=== PATIENT | male | born 1960 | race Caucasian/White ===

== ENCOUNTER 2023-07-21 08:37 | Outpatient (AMB) | payer OTHER, SELFPAY ==
--- NOTE | 2023-07-21 08:43 | A.OFFVIS_ITS ---
Intake Vital Signs 07/21/23 08:44 Height 6 ft 1 in Weight 129 lb BMI 17.0 BP 112/84 Blood Pressure Location Rt brachial Position Sitting Pulse 106 H Pulse Source Pulse Oximeter Pulse Oximetry (%) 94 Oxygen Delivery Method Room Air Intake Visit Reasons: ENP-Essential Tremors - Confirmed Intake Note: Patient presents for essential tremors. I'm having balance issue,weakness and a lot of tremors in my hands, this has been going on for a while Allergies No Known Allergies Allergy (Verified 07/21/23 08:45) Medication List - Last Reconciled 07/23/23 by CHARLOTTE De La Paz cyclobenzaprine 10 mg PO TID flash glucose sensor (FreeStyle Juan M 2 Sensor kit) As directed folic acid 1 mg PO DAILY hdgsno-qyqvaqye-hreybif 12,000-38,000 -60,000 unit (Creon) 3 caps PO TID omeprazole 20 mg PO DAILY oxycodone 10 mg PO QID PRN propranolol 10 mg PO BID tamsulosin 0.4 mg PO DAILY vitamin B complex (Vitamins B Complex tablet) 1 tab PO DAILY HPI HPI Comments History of Present Illness Details 62-yr-old male presents for new pt evalu ation of movement disorder, specifically: tremor and balance difficulties. Pt states he started having BUE tremor, R > L, in 2014 after he had a cervical stenosis surgical repair which done done in hopes this would help his balance problems. However, he also states that his gait has been poor since that surgery. The tremor is action and rest. He did first notice it with action- was having difficulty holding his tools. Pt states the tremor makes it difficult to do anything, such as eating, pouring and holding things, writing. Pt is right handed. He lives in a house w/ his . Does not have children. ADL status: He does need help w/ shaving, showering- can be unsteady getting in/out of shower- has a SCREEN MAKING TECHNICIAN through [facility]. IADL status: States he is Ind. Does drive- denies nay near accidents/accidents. Fine-motor skills: Cannot write. Does his zippers with left hand. Pt reports: Micrographia: poor writing Hypophonia: Denies Hyposmia: Denies Dysphagia: Can have difficulty swallowing solid foods- is missing several teeth, cannot eat w/ his partials Drooling: Sometimes, mild nocturnal Orthostatic lightheadedness: Often lightheaded- but not often often - ie not daily Constipation: Rarely Slowness: He is slower overall Freezing episodes: It may happen Sensory changes: Tingling in his toes- was recently dx'd w/ DM. Tremor: as above Stiffness/cramps: His back is stiff. BLE muscle cramps. Weakness: He feels overall weaker since the 2015 surgery. 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 He does have a cane but does not work for him. He does use his walker at home. He is prone to fall, especially when going to the bathroom at night or getting in/out of the shower (likes a hot shower), when he gets up from the tub and less so getting out of the shower- has a moment of fogginess and can lose his balance. Tries to keep the lights on at night to help his balance. Sleep difficulty: Sleeps well. Denies parasomnias. Memory impairment: States memory is fine. Likes to read, uses his computer at t imes- can use a mouse but not a trackpad w/ the tremor. Hallucinations: Denies Usual exercise: Uses a mechanical stepper at home- states not as often as he should. Also endorses: Dizziness- orthostatic- feels like a brief swaying shock wave . Shooting neck and back pain- exacerbated by movement, when the pain grabs his neck it causes stiffness and he cannot talk. Right 1st-3rd finger numbness/tingling. Denies: Urinary incontinence, bowel incontinence. He did try Propranolol 10mg bid- was ineffective after several weeks, unsure if it exacerbated his lightheadedness. He takes Oxycodone 10mg qid and prn- for chronic pain- managed by PCP. History of concussion/head injury? 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 History of neuroleptic (metoclopramide/antipsychotics) use? Denies History of alcohol use or substances? States he does drink daily- maybe 2-3 shots of whiskey in day. Smokes cigarrettes- varies- 1/2-1PPD, maybe more or less. History of psychiatric hospitalizations? Denies History of occupational chemical exposures? 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 Family history of movement disorders? None Family history of mood disorder or suicide? None CT Cervical Spine W/O Contrast COMPARISON: 07/29/2018 FINDINGS: BRAIN and EXTRA-AXIAL SPACES: No parenchymal hemorrhage, midline shift or mass effect. Díaz-white matter differentiation is well preserved. No acute infarct. Negative insular ribbon and hyperdense vessel signs. Ventricles, sulci and basilar cisterns are normal for age. Mild low-density white matter changes. No subarachnoid hemorrhage, subdural or epidural collections. CALVARIUM, SKULL BASE AND SOFT TISSUES: No fractures. Erosive cystic change involves the left maxillary alveolus (image 65 series 301), presumably site of prior odontogenic abnormality. Mild mucosal thickening of the left sphenoid sinus. Otherwise, the paranasal sinuses and mastoid air cells are clear. Visualized orbits and globes are intact. An acute soft tissue injury is not appreciated. CERVICAL SPINE: No fracture. No acute osseous abnormalities. Mild straightening of the cervical spine which may be due to patient positioning or muscle spasms. No locked or perched facet. Multilevel degenerative changes most prominent at C5-C7. Postsurgical changes of the C5-C7 right posterior elements and spinous processes with fixation hardware. OTHER BONES: No acute abnormality. CERVICAL SOFT TISSUES AND LUNG APICES: Clear lung apices with mild emphysematous changes. Normal thyroid gland. \ IMPRESSION: No acute intracranial or cervical spine abnormality. 08/23/2021, MRI Brain W/O Contrast COMPARISON: Noncontrast CT of 03/21/2021. FINDINGS: BRAIN and EXTRA-AXIAL SPACES: The midline structures, including sella, corpus callosum, and craniocervical junction, are unremarkable. There is no mass effect, midline shift, or effacement of the basal cisterns. On diffusion weighted imaging, there are no regions of restricted diffusion to indicate an acute or subacute infarct. There is no evidence of intracranial hemorrhage on susceptibility sensitive sequence. Mild scattered foci of T2 prolongation are seen in the white matter. A chronic small linear lacunar infarct in the inferior left cerebellum is also noted. Ventricles, cisterns, and sulci are normal in size and configuration, without hydrocephalus. No abnormal extra-axial fluid collections are seen. Meningeal surfaces are normal. Major intracranial flow voids are present. EXTRACRANIAL SOFT TISSUES: Orbits are unremarkable. There is minimal fluid in the left sphenoid sinus. Paranasal sinuses and mastoids are otherwise unremarkable. BONES: Marrow signal is preserved. IMPRESSION: No acute/subacute infarct, hemorrhage, or hydrocephalus. Mild nonspecific white matter T2 hyperintensities probably sequela of chronic microangiopathy. 03/21/21, CT Cervical Spine W/O Contrast COMPARISON: 07/29/2018 FINDINGS: BRAIN and EXTRA-AXIAL SPACES: No parenchymal hemorrhage, midline shift or mass effect. Díaz-white matter differentiation is well preserved. No acute infarct. Negative insular ribbon and hyperdense vessel signs. Ventricles, sulci and basilar cisterns are normal for age. Mild low-density white matter changes. No subarachnoid hemorrhage, subdural or epidural collections. CALVARIUM, SKULL BASE AND SOFT TISSUES: No fractures. Erosive cystic change involves the left maxillary alveolus (image 65 series 301), presumably site of prior odontogenic abnormality. Mild mucosal thickening of the left sphenoid sinus. Otherwise, the paranasal sinuses and mastoid air cells are clear. Visualized orbits and globes are intact. An acute soft tissue injury is not appreciated. CERVICAL SPINE: No fracture. No acute osseous abnormalities. Mild straightening of the cervical spine which may be due to patient positioning or muscle spasms. No locked or perched facet. Multilevel degenerative changes most prominent at C5-C7. Postsurgical changes of the C5-C7 right posterior elements and spinous processes with fixation hardware. OTHER BONES: No acute abnormality. CERVICAL SOFT TISSUES AND LUNG APICES: Clear lung apices with mild emphysematous changes. Normal thyroid gland. IMPRESSION: No acute intracranial or cervical spine abnormality. [facility] Medical History (Updated 07/23/23 @ 19:51 by CHARLOTTE De La Paz) Stroke due to occlusion of left cerebellar artery Chronic pancreatitis Diabetes Surgical History (Updated 07/21/23 @ 08:48 by VANDA Dawn) H/O neck surgery Social History (Updated 07/21/23 @ 08:49 by VANDA Dawn) Alcohol intake: current Patient Tobacco Use Status: Current everyday Tobacco user Review of Systems Const All systems reviewed & are unremarkable except as noted in HPI and below Physical Exam Vital Signs: Last Vital Signs Pulse 106 H 07/21/23 08:44 BP 112/84 07/21/23 08:44 Pulse Ox 94 07/21/23 08:44 Oxygen Delivery Method Room Air 01/12/24 08:44 BMI result Body Mass Index 17.0 Const General: cooperative and no acute distress Resp Effort & Inspection: normal respiratory effort and able to speak in complete sentences Cardio Rate: regular rate Rhythm: regular rhythm Neuro Other: General: A&O x's 3, w/ mild STM lapses Expression: Blink- intact Voice: Intact Tremor: Mild LUE rest tremor, BUE R > L large amplitude postural and kinetic tremor. LLE rest tremor. Archimede's Spiral- Illegible, worse on right Sentence: Nearly illegible, worsens as writing progresses. No significant Right forearm muscle activation observed. VICTOR MANUEL: BUE unable to perform Tone: RUE rigidity- mild Dyskinesia: None FFM: Decreased fluidity, on left Foot taps: Decreased fluidity, on left Gait: Able to stand w/o using arm support, hands postured in flexion, short steps, wider base, low floor clearance w/ intermittent shuffling, mild dragging RLE, mx steps to turn, Psych: Pleasant affect DTRs- dulled throughout Psych Mental Status: mental status grossly normal Speech and movement: Normal speech and movement present Affect: normal affect Attitude: cooperative Thought process: Normal thought process present Assessment & Plan Assessment & Plan (1) Tremor: Comment: Pt has BUE action and postural tremor c/w ET, however he also has a more asymmetric left-predominant LUE and LLE rest tremor. Raises possibility of a secondary etiology for tremor, ET plus syndrome, or possibly an underlying neurodegenerative process. Code(s): R25.1 - Tremor, unspecified (2) Essential tremor: Code(s): G25.0 - Essential tremor (3) Gait disorder: Code(s): R26.9 - Unspecified abnormalities of gait and mobility (4) Paresthesia of right upper extremity: Code(s): R20.2 - Paresthesia of skin (5) Cervicalgia: Code(s): M54.2 - Cervicalgia Plan Pt advised to undergo: Labs to assess for secondary etiologies of tremor, weakness, paresthesias. Brain MRI w/wo- to assess for secondary etiologies of worsening tremor, gait diff, paresthesias. BUE and BLE EMG/NCS. Will refer for PT eval & tx. f/u upon review of above and in 3 months or sooner prn. Orders: Orders Complete Blood Count Auto Diff 07/21/23 E11.9 - Type 2 diabetes mellitus without complications, G25.0 - Essential tremor, K86.1 - Other chronic pancreatitis, R25.1 - Tremor, unspecified, R26.9 - Unspecified abnormalities of gait and mobility Comprehensive Met. Panel 07/21/23 E11.9 - Type 2 diabetes mellitus without complications, G25.0 - Essential tremor, K86.1 - Other chronic pancreatitis, R25.1 - Tremor, unspecified, R26.9 - Unspecified abnormalities of gait and mobility Vitamin B12 and Folate 07/21/23 E11.9 - Type 2 diabetes mellitus without complications, G25.0 - Essential tremor, K86.1 - Other chronic pancreatitis, R25.1 - Tremor, unspecified, R26.9 - Unspecified abnormalities of gait and mobility CRP High Sensitivity 07/21/23 E11.9 - Type 2 diabetes mellitus without complications, G25.0 - Essential tremor, K86.1 - Other chronic pancreatitis, R25.1 - Tremor, unspecified, R26.9 - Unspecified abnormalities of gait and mobility Erythrocyte Sedimentation Rate 07/21/23 E11.9 - Type 2 diabetes mellitus without complications, G25.0 - Essential tremor, K86.1 - Other chronic pancreatitis, R25.1 - Tremor, unspecified, R26.9 - Unspecified abnormalities of gait and mobility HERO Reflex Titer and Pattern 07/21/23 E11.9 - Type 2 diabetes mellitus without complications, G25.0 - Essential tremor, K86.1 - Other chronic pancreatitis, R25.1 - Tremor, unspecified, R26.9 - Unspecified abnormalities of gait and mobility Vitamin B6 07/21/23 G25.0 - Essential tremor, K86.1 - Other chronic pancreatitis, R20.2 - Paresthesia of skin, R25.1 - Tremor, unspecified, R26.9 - Unspecified abnormalities of gait and mobility TSH reflex Free T4 07/21/23 E11.9 - Type 2 diabetes mellitus without complications, G25.0 - Essential tremor, K86.1 - Other chronic pancreatitis, R25.1 - Tremor, unspecified, R26.9 - Unspecified abnormalities of gait and mobility Rheumatoid Factor 07/21/23 E11.9 - Type 2 diabetes mellitus without complications, G25.0 - Essential tremor, K86.1 - Other chronic pancreatitis, R25.1 - Tremor, unspecified, R26.9 - Unspecified abnormalities of gait and mobility Ceruloplasmin 07/21/23 E11.9 - Type 2 diabetes mellitus without complications, G25.0 - Essential tremor, K86.1 - Other chronic pancreatitis, R25.1 - Tremor, unspecified, R26.9 - Unspecified abnormalities of gait and mobility Vitamin B3 (Niacin) 07/21/23 G25.0 - Essential tremor, K86.1 - Other chronic pancreatitis, R20.2 - Paresthesia of skin, R25.1 - Tremor, unspecified, R26.9 - Unspecified abnormalities of gait and mobility Vitamin B1 07/21/23 G25.0 - Essential tremor, K86.1 - Other chronic pancreatitis, R20.2 - Paresthesia of skin, R25.1 - Tremor, unspecified, R26.9 - Unspecified abnormalities of gait and mobility PT Evaluation and Treatment 07/21/23 E11.9 - Type 2 diabetes mellitus without complications, I63.542 - Cerebral infarction due to unspecified occlusion or stenosis of left cerebellar artery, R25.1 - Tremor, unspecified, R26.9 - Unspecified abnormalities of gait and mobility MR head/brain wo/w con 07/21/23 E11.9 - Type 2 diabetes mellitus without complications, I63.542 - Cerebral infarction due to unspecified occlusion or stenosis of left cerebellar artery, R25.1 - Tremor, unspecified, R26.9 - Unspecified abnormalities of gait and mobility NE electromyogram (EMG) Today M54.2 - Cervicalgia, R20.2 - Paresthesia of skin, R25.1 - Tremor, unspecified NE electromyogram (EMG) Today E11.9 - Type 2 diabetes mellitus without complications, G89.29 - Other chronic pain, M54.9 - Dorsalgia, unspecified, R20.2 - Paresthesia of skin, R25.1 - Tremor, unspecified, R26.9 - Unspecified abnormalities of gait and mobility Creatine Kinase Total Today R20.2 - Paresthesia of skin, R25.1 - Tremor, unspecified, R25.2 - Cramp and spasm Coding Level of Care Code New Pt Level 4 (06364) Diagnoses Tremor R25.1 Essential tremor G25.0 Gait disorder R26.9 Paresthesia of right upper extremity R20.2 Cervicalgia M54.2
[2023-07-21 08:44] VITALS: BP 112/84; PULSE 106; O2SAT 94; BMI 17.0
== END 2023-07-21 10:29 | disposition home or self-care (01) ==
PROVIDERS: PCP Internal Medicine; Visit Provider Nurse Practitioner Family
DX: G25.0 Essential tremor (principal); R26.9 Unspecified abnormalities of gait and mobility; R20.2 Paresthesia of skin; M54.2 Cervicalgia
CPT/HCPCS: 99204

== ENCOUNTER → 2023-07-21 08:37 | Outpatient (BNVA) | payer OTHER, SELFPAY | PROVIDERS: PCP Internal Medicine; Visit Provider Nurse Practitioner Family | DX: G25.0 Essential tremor (principal); R26.9 Unspecified abnormalities of gait and mobility; R20.2 Paresthesia of skin; M54.2 Cervicalgia | CPT/HCPCS: 99202 ==

== ENCOUNTER 2023-08-09 13:25 | Outpatient (REF) | payer OTHER, SELFPAY ==
--- NOTE | 2023-08-09 13:32 | EMG_ITS ---
Chief complaint: Tremors, numbness of hands and feet, weakness, gradual weight loss History of cervical fusion 2016 Reason for referral: Evaluate for neuropathy Referred by: Lana Avendano NP Procedure done: Bilateral upper extremities/bilateral lower extremity NCS and EMG attempted Precautions and/or limitations: Poor tolerance of needle EMG, incomplete study. The limb temperature was monitored continuously and remained between 32-36 degrees C during the performance of the NCS. Ulnar motor NCS was performed with moderate elbow flexion between 70-90 degrees, with across-elbow distance of 10 cm. Nerve Conduction Studies Anti Sensory Summary Table ?Stim Site NR Onset (ms) Norm Onset (ms) Peak (ms) Norm Peak (ms) O-P Amp (?V) Norm O-P Amp Site1 Site2 Delta-0 (ms) Dist (cm) Guiseppe (m/s) Norm Giuseppe (m/s) Left Median Anti Sensory (2nd Digit) Wrist ? 2.7 3.8 <3.6 24.9 >10 Wrist 2nd Digit 2.7 14.0 52 Right Median Anti Sensory (2nd Digit) Wrist ? 2.6 3.6 <3.6 17.8 >10 Wrist 2nd Digit 2.6 14.0 54 Left Sural Anti Sensory (Lat Mall) Calf ? 1.9 2.4 <4.0 4.4 >5.0 Calf Lat Mall 1.9 14.0 74 Site 2 ? 1.9 2.3 2.4 Right Sural Anti Sensory (Lat Mall) Calf NR <4.0 >5.0 Calf Lat Mall 14.0 Left Ulnar Anti Sensory (5th Digit) Wrist ? 3.3 4.1 <3.7 4.4 >15.0 Wrist 5th Digit 3.3 14.0 42 Right Ulnar Anti Sensory (5th Digit) Wrist ? 2.7 3.9 <3.7 11.5 >15.0 Wrist 5th Digit 2.7 14.0 52 Motor Summary Table ?Stim Site NR Onset (ms) Norm Onset (ms) O-P Amp (mV) Norm O-P Amp iAmp (mV) Amp (1st) (%) Site1 Site2 Delta-0 (ms) Dist (cm) Giuseppe (m/s) Norm Giuseppe (m/s) Left Median Motor (Abd Poll Brev) Wrist ? 4.4 <3.9 8.6 >4.5 10.0 100.0 Elbow Wrist 4.3 22.0 51 >45 Elbow ? 8.7 8.3 9.8 96.5 Right Median Motor (Abd Poll Brev) Wrist ? 3.8 <3.9 8.3 >4.5 9.9 100.0 Elbow Wrist 4.1 24.0 59 >45 Elbow ? 7.9 7.9 9.3 95.2 Right Peroneal Motor (Ext Dig Brev) Ankle ? 4.5 <4.0 3.0 >2.5 4.5 100.0 Ankle Ext Dig Brev 4.5 0.0 B Fib ? 12.5 2.6 3.9 86.7 B Fib Ankle 8.0 32.0 40 >40 Poplt ? 14.3 2.5 3.8 83.3 Poplt B Fib 1.8 6.0 33 >40 Left Tibial Motor (Abd Cali Brev) Ankle ? 6.8 <5 6.8 >2.5 8.8 100.0 Ankle Abd Cali Brev 6.8 0.0 Knee ? 16.2 6.1 8.1 89.7 Knee Ankle 9.4 40.0 43 >40 Right Tibial Motor (Abd Cali Brev) Ankle ? 5.2 <5 7.9 >2.5 11.1 100.0 Ankle Abd Cali Brev 5.2 0.0 Knee ? 16.9 8.1 10.1 102.5 Knee Ankle 11.7 44.0 38 >40 Left Ulnar Motor (Abd Dig Minimi) Wrist ? 3.9 <3.0 8.5 >5 9.9 100.0 B Elbow Wrist 3.7 21.0 57 >45 B Elbow ? 7.6 8.0 9.6 94.1 A Elbow B Elbow 2.0 10.0 50 >45 A Elbow ? 9.6 8.7 10.3 102.4 Right Ulnar Motor (Abd Dig Minimi) Wrist ? 3.0 <3.0 7.9 >5 10.1 100.0 B Elbow Wrist 4.0 21.0 53 >45 B Elbow ? 7.0 6.1 7.9 77.2 A Elbow B Elbow 1.6 10.0 63 >45 A Elbow ? 8.6 8.2 10.9 103.8 EMG ?Side Muscle Nerve Root Ins Act Fibs Psw Amp Dur Poly Recrt Int Pat Comment Right AntTibialis Dp Br Peron L4-5 Nml 1+ 1+ Incr Nml 0 Nml Complete Right MedGastroc Tibial S1-2 Nml Nml Nml Nml Nml 0 Nml Complete Right VastusMed Femoral L2-4 Nml Nml Nml Nml Nml 0 Nml Complete FINDINGS: Left median motor nerve showed prolonged distal latency, normal amplitude and normal conduction velocity. Left ulnar motor nerve showed prolonged distal latency, normal amplitude and normal conduction velocity. Left median sensory nerve showed prolonged peak latency. Bilateral ulnar sensory nerve showed prolonged peak latency and small amplitude. Right peroneal nerve showed prolonged distal latency, normal amplitude and slow conduction velocity across the fibular neck. Right tibial nerve showed prolonged distal latency, normal amplitude and slow conduction velocity. Left tibial nerve showed prolonged distal latency, normal amplitude and normal conduction velocity. Right sural showed absent response. Left sural showed normal peak latency but small amplitude. All other nerves tested were within normal. Concentric needle EMG was attempted, starting on right lower extremity. Unfortunately patient could not tolerate much and we could not proceed further. Incomplete study revealed signs of electric abnormalities as shown in the table below. Right TA showed increased insertional activity, PSWs and fibrillations. IMPRESSION: 1. This is an incomplete study. 2. 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 3. Without needle EMG, can not rule out lumbar radiculopathy or a more diffuse neuropathy. Thank you for your kind referral. More Prado MD, ANNETTE Board Certified, [place] [employer] and [employer] (ABPMR) Board Certified, [place] Board [employer] Electrodiagnostic [employer] (ABEM) [place] [id number] [facility]
== END 2023-08-09 13:26 | disposition home or self-care (01) ==
LOC: HO.NEURO 13:25
PROVIDERS: PCP Internal Medicine; Visit Provider Nurse Practitioner Family
DX: R20.2 Paresthesia of skin (principal); R25.1 Tremor, unspecified; M54.2 Cervicalgia
CPT/HCPCS: 95885; 95913

== ENCOUNTER → 2023-08-09 13:32 | Outpatient (BNV) | payer OTHER, SELFPAY | PROVIDERS: PCP Internal Medicine; Visit Provider Physical Medicine & Rehabilitation | DX: G56.22 Lesion of ulnar nerve, left upper limb (principal); S64.12XA Injury of median nerve at wrist and hand level of left arm, initial encounter | CPT/HCPCS: 95885; 95913 ==

== ENCOUNTER 2025-06-30 09:29 | Outpatient (AMB) | payer OTHER, SELFPAY ==
--- NOTE | 2025-06-30 09:30 | A.OFFVIS_ITS ---
Vital Signs 06/30/25 09:34 Height 6 ft 1 in Weight 138 lb BMI 18.2 BP 120/82 Blood Pressure Location Rt brachial Position Sitting Pulse 85 Pulse Source Pulse Oximeter Pulse Oximetry (%) 97 Oxygen Delivery Method Room Air Intake Visit Reasons: F/u Essenstial Tremors Intake Note: Follow up Essential tremors Vulcanizer Rubber Plate Required: No Accompanied by: Self / Same As Patient Allergies No Known Allergies Allergy (Verified 06/30/25 09:30) Medication List - Last Reconciled 06/30/25 by CHARLOTTE De La Paz cyclobenzaprine 10 mg PO TID flash glucose sensor (FreeStyle Juan M 2 Sensor kit) As directed folic acid 1 mg PO DAILY jfczbz-eleoluai-zhplnzr (pork) 12,000-38,000 -60,000 unit (Creon) 3 caps PO TID omeprazole 20 mg PO DAILY oxycodone 10 mg PO QID PRN propranolol 10 mg PO BID tamsulosin 0.4 mg PO DAILY vitamin B complex (Vitamins B Complex tablet) 1 tab PO DAILY HPI Comments Details: Right-handed 64-yr-old male presents to follow-up for tremor, however he states he is more concerned with recurrent falls. Interval workup: 04/27/2025, CT Head/Brain W/O Contrast, CT Cervical Spine W/O Contrast * No acute traumatic injury in the head or cervical spine. * Mild low-density white matter changes. * Moderate multilevel degenerative disc space narrowing and end plate irregularity. 08/23/2023, brain MRI w/o, at [facility]: * No acute/subacute infarct, hemorrhage, or hydrocephalus. * Mild nonspecific white matter T2 hyperintensities probably sequela of chronic microangiopathy. 08/09/2023, E EMG/NCS: * This was an incomplete study as he states he could not tolertae the study * Nerve conduction studies showed possible left median neuropathy at the wrist and left ulnar neuropathy at the elbow. * Without needle EMG, can not rule out lumbar radiculopathy or a more diffuse neuropathy. He reports he has been having increased falls. * May fall to the left or the right, * But he is more concerned that at times, he can fall backwards * He states he never falls forward * He can easily trip- even if a tile is slightly unlevel or an extension cord is on the floor. * On review of [facility] portal, patient was seen at [facility] ER on 04/27/2025, per the ER note, the fall was due to a slip and fall, while he was trying to get into his wheelchair, when he slipped and fell backwards hitting his head and neck. He had had 2 drinks prior to the fall, but his fsr had reportedly stated that he was in his normal state. His primary complaint at the time was a right thumb pain, though there was a contusion to his left forehead. Per the note, the patient declined lab work at that time., and as head and neck imaging were unremarkable, he was discharged home in the care of his caregiver. He also reports orthostatic lightheadedness, and as he walks place to place * He stopped propranolol- * however he states he stopped this due to his GI s/s and not lightheadedness * He states he does not drink water * He drinks half-a gallon of coffee a day uses a small amount of brown sugar and unflavored half and half. He continues to drink alcohol- not daily- 1/2 liter or pint of hard alcohol- may stop after 1 sip realizing he does not need to drink, but other times- he can drink 1/2 the bottle in a day- this depends on his mood. He last did PT 3 yrs ago. Pt reports: Micrographia: poor writing- unable to write * The right 2nd, 3rdm 4th fingers feel too numb, to be able to control a pen. Hypophonia: Denies Hyposmia: Denies Dysphagia: Can have difficulty swallowing solid foods- is missing several teeth, cannot eat w/ his partials, swollen glands Drooling: Maybe at night Orthostatic lightheadedness: as above Constipation: Occasionally- on Creon for digestion, which helps. : urinary frequency- f/b Urology Slowness: feels slowness Freezing episodes: It may happen Sensory changes: Tingling in his toes Tremor: He states that he cannot sign his name any longer. Stiffness/cramps: Generalized stiffness. BLE muscle cramps. Weakness: He feels overall weaker and reports decreased muscle mass since the 2015 C-spine surgery, especially the RUE weakness. Gait changes: as above Sleep difficulty: Sleeps well. Denies parasomnias. Memory impairment: States memory used to excellent, but it has been a bit worse in the year- he attributes this to stress and anger as his has had to undergo an amputation. Hallucinations: Denies Usual exercise: Uses a mechanical stepper at home. He is considering joining [employer]. 07/21/2023, Initial HPI: 62-yr-old male presents for new pt evaluation of movement disorder, specifically: tremor and balance difficulties. Pt states he started having BUE tremor, R > L, in 2014 after he had a cervical stenosis surgical repair which done done in hopes this would help his balance problems. However, he also states that his gait has been poor since that surgery. The tremor is action and rest. He did first notice it with action- was having difficulty holding his tools. Pt states the tremor makes it difficult to do anything, such as eating, pouring and holding things, writing. Pt is right handed. He lives in a house w/ his . Does not have children. 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 IADL status: States he is Ind. Does drive- denies nay near accidents/accidents. Fine-motor skills: Cannot write. Does his zippers with left hand. Pt reports: Micrographia: poor writing Hypophonia: Denies Hyposmia: Denies Dysphagia: Can have difficulty swallowing solid foods- is missing several teeth, cannot eat w/ his partials Drooling: Sometimes, mild nocturnal Orthostatic lightheadedness: Often lightheaded- but not often often - ie not daily Constipation: Rarely Slowness: He is slower overall Freezing episodes: It may happen Sensory changes: Tingling in his toes- was recently dx'd w/ DM. Tremor: as above Stiffness/cramps: His back is stiff. BLE muscle cramps. Weakness: He feels overall weaker since the 2015 surgery. 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 He does have a cane but does not work for him. He does use his walker at home. He is prone to fall, especially when going to the bathroom at night or getting in/out of the shower (likes a hot shower), when he gets up from the tub and less so getting out of the shower- has a moment of fogginess and can lose his balance. Tries to keep the lights on at night to help his balance. Sleep difficulty: Sleeps well. Denies parasomnias. Memory impairment: States memory is fine. Likes to read, uses his computer at times- can use a mouse but not a trackpad w/ the tremor. Hallucinations: Denies Usual exercise: Uses a mechanical stepper at home- states not as often as he should. Also endorses: Dizziness- orthostatic- feels like a brief swaying shock wave . Shooting neck and back pain- exacerbated by movement, when the pain grabs his neck it causes stiffness and he cannot talk. Right 1st-3rd finger numbness/tingling. Denies: Urinary incontinence, bowel incontinence. He did try Propranolol 10mg bid- was ineffective after several weeks, unsure if it exacerbated his lightheadedness. He takes Oxycodone 10mg qid and prn- for chronic pain- managed by PCP. History of concussion/head injury? A few minor accidents- has banged his head at work- and seen stars. History of neuroleptic (metoclopramide/antipsychotics) use? Denies History of alcohol use or substances? States he does drink daily- maybe 2-3 shots of whiskey in day. Smokes cigarrettes- varies- 1/2-1PPD, maybe more or less. History of psychiatric hospitalizations? Denies History of occupational chemical exposures? 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 Family history of movement disorders? None Family history of mood disorder or suicide? None CT Cervical Spine W/O Contrast COMPARISON: 07/29/2018 FINDINGS: BRAIN and EXTRA-AXIAL SPACES: No parenchymal hemorrhage, midline shift or mass effect. Díaz-white matter differentiation is well preserved. No acute infarct. Negative insular ribbon and hyperdense vessel signs. Ventricles, sulci and basilar cisterns are normal for age. Mild low-density white matter changes. No subarachnoid hemorrhage, subdural or epidural collections. CALVARIUM, SKULL BASE AND SOFT TISSUES: No fractures. Erosive cystic change involves the left maxillary alveolus (image 65 series 301), presumably site of prior odontogenic abnormality. Mild mucosal thickening of the left sphenoid sinus. Otherwise, the paranasal sinuses and mastoid air cells are clear. Visualized orbits and globes are intact. An acute soft tissue injury is not appreciated. CERVICAL SPINE: No fracture. No acute osseous abnormalities. Mild straightening of the cervical spine which may be due to patient positioning or muscle spasms. No locked or perched facet. Multilevel degenerative changes most prominent at C5-C7. Postsurgical changes of the C5-C7 right posterior elements and spinous processes with fixation hardware. OTHER BONES: No acute abnormality. CERVICAL SOFT TISSUES AND LUNG APICES: Clear lung apices with mild emphysematous changes. Normal thyroid gland. \ IMPRESSION: No acute intracranial or cervical spine abnormality. 08/23/2021, MRI Brain W/O Contrast COMPARISON: Noncontrast CT of 03/21/2021. FINDINGS: BRAIN and EXTRA-AXIAL SPACES: The midline structures, including sella, corpus callosum, and craniocervical junction, are unremarkable. There is no mass effect, midline shift, or effacement of the basal cisterns. On diffusion weighted imaging, there are no regions of restricted diffusion to indicate an acute or subacute infarct. There is no evidence of intracranial hemorrhage on susceptibility sensitive sequence. Mild scattered foci of T2 prolongation are seen in the white matter. A chronic small linear lacunar infarct in the inferior left cerebellum is also noted. Ventricles, cisterns, and sulci are normal in size and configuration, without hydrocephalus. No abnormal extra-axial fluid collections are seen. Meningeal surfaces are normal. Major intracranial flow voids are present. EXTRACRANIAL SOFT TISSUES: Orbits are unremarkable. There is minimal fluid in the left sphenoid sinus. Paranasal sinuses and mastoids are otherwise unremarkable. BONES: Marrow signal is preserved. IMPRESSION: No acute/subacute infarct, hemorrhage, or hydrocephalus. Mild nonspecific white matter T2 hyperintensities probably sequela of chronic microangiopathy. 03/21/21, CT Cervical Spine W/O Contrast COMPARISON: 07/29/2018 FINDINGS: BRAIN and EXTRA-AXIAL SPACES: No parenchymal hemorrhage, midline shift or mass effect. Díaz-white matter differentiation is well preserved. No acute infarct. Negative insular ribbon and hyperdense vessel signs. Ventricles, sulci and basilar cisterns are normal for age. Mild low-density white matter changes. No subarachnoid hemorrhage, subdural or epidural collections. CALVARIUM, SKULL BASE AND SOFT TISSUES: No fractures. Erosive cystic change involves the left maxillary alveolus (image 65 series 301), presumably site of prior odontogenic abnormality. Mild mucosal thickening of the left sphenoid sinus. Otherwise, the paranasal sinuses and mastoid air cells are clear. Visualized orbits and globes are intact. An acute soft tissue injury is not appreciated. CERVICAL SPINE: No fracture. No acute osseous abnormalities. Mild straightening of the cervical spine which may be due to patient positioning or muscle spasms. No locked or perched facet. Multilevel degenerative changes most prominent at C5-C7. Postsurgical changes of the C5-C7 right posterior elements and spinous processes with fixation hardware. OTHER BONES: No acute abnormality. CERVICAL SOFT TISSUES AND LUNG APICES: Clear lung apices with mild emphysematous changes. Normal thyroid gland. IMPRESSION: No acute intracranial or cervical spine abnormality. 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 Chronic pancreatitis Diabetes Surgical History H/O neck surgery Social History Alcohol intake: current Patient Tobacco Use Status: Current everyday Tobacco user Review of Systems Const All systems reviewed & are unremarkable except as noted in HPI and below Physical Exam Vital Signs: Last Vital Signs Pulse 85 06/30/25 09:34 BP 120/82 06/30/25 09:34 Pulse Ox 97 06/30/25 09:34 Oxygen Delivery Method Room Air 06/30/25 09:34 BMI result Body Mass Index 18.2 Const General: cooperative and no acute distress Resp Effort & Inspection: normal respiratory effort and able to speak in complete sentences Cardio Rate: regular rate Rhythm: regular rhythm Neuro Other: General: A&O x's 3, w/ mild STM lapses Expression: Blink- intact Voice: Intact Tremor: No LUE rest tremor today. BUE R > L large amplitude postural and kinetic tremor. No LLE rest tremor today Tone: RUE rigidity- mild Dyskinesia: None FFM: Decreased fluidity, on left Foot taps: Decreased fluidity, on left Gait: Able to stand slowly, short steps w/ right higher step, wider base, mx steps to turn- does not have a device with him today. Psych: Pleasant affect BUE tinnel, phalen, medial compression test- negative Mild left thenar atrophy Hand grasps - slightly weaker on right Impaired BUE paper pull test Psych Mental Status: mental status grossly normal Speech and movement: Normal speech and movement present Affect: normal affect Attitude: cooperative Thought process: Normal thought process present Assessment & Plan Assessment & Plan (1) Tremor: Comment: Pt has BUE action and postural tremor c/w ET, however he also has a more asymmetric left-predominant LUE and LLE rest tremor. Raises possibility of a secondary etiology for tremor, ET plus syndrome, or possibly an underlying neurodegenerative process. Code(s): R25.1 - Tremor, unspecified Category: Medical (2) Essential tremor: Code(s): G25.0 - Essential tremor Category: Medical (3) Gait disorder: Code(s): R26.9 - Unspecified abnormalities of gait and mobility Category: Medical (4) Paresthesia of right upper extremity: Code(s): R20.2 - Paresthesia of skin Category: Medical (5) Cervicalgia: Code(s): M54.2 - Cervicalgia Category: Medical (6) Weakness: Code(s): R53.1 - Weakness Category: Medical (7) Orthostatic lightheadedness: Code(s): R42 - Dizziness and giddiness Category: Medical Plan Pt advised to undergo: OT eval & Tx- for BUE action/kinetic tremor and weakness. Orthopedic consult- for BUE paresthesia, weakness, in the setting of NCS showing left carpal tunnel and ulnar neuropathy. Unfortunately, he was unable to complete the myelogram portion of the order EMG/NCS, and he declines referral to complete the EMG. Tilt table test- to assess for orthostatic hypotension PT eval & tx- however he declines- he would prefer to got o [employer]. I did advise patient, that he should use caution and avoid heavy weights due to history of cervical spine surgery and gait difficulties. Patient states he had had previously ordered labs done, however I am unable to access these through either [facility] or [facility] portal. f/u upon review of above and in 6months or sooner prn. Orders: Orders OT Evaluation and Treatment Today R25.1 - Tremor, unspecified, R53.1 - Weakness ECG Tilt Table Test Today R42 - Dizziness and giddiness Referrals Orthopedics Referral R20.2 - Paresthesia of skin, R25.1 - Tremor, unspecified Coding Level of Care Code Est Pt Level 5 (04150) Diagnoses Tremor R25.1 Essential tremor G25.0 Gait disorder R26.9 Paresthesia of right upper extremity R20.2 Cervicalgia M54.2 Weakness R53.1 Orthostatic lightheadedness R42 Comment Greater than 60 minutes
[2025-06-30 09:34] VITALS: BP 120/82; PULSE 85; O2SAT 97; BMI 18.2
--- OUTSIDE RECORDS SUMMARY | 2025-06-30 10:49 | XMS_ITS | Clinical Summary ---
Author Organization [facility] Address [address] [facility] [address] [place] [address] Phone Care Team Providers Care Reversal Print Inspector Name Role Phone Grady BoswellYan quezada DO Primary Care Provide r Allergies Active Allergy Reactions Criticality Noted Date Comments Morphine 05/01/2023 Medications oxyCODONE (ROXICODONE) 10 MG immediate release tablet Take 1 tablet by mouth 1 (one) time each day Active glimepiride (AMARYL) 4 MG tablet Take 4 mg by mouth 1 (one) time each day Active cyanocobalamin 500 MCG tablet Take 1 tablet by mouth 1 (one) time each day 3 Active Insulin Lispro (HumaLOG) 100 UNIT/ML solution Inject under the skin Active loperamide (IMODIUM) 2 MG capsule Take 2 mg by mouth 3 Active pancrelipase, Icg-Dmbc-Kyzy, (Creon) 48941-[address]483 units capsule TAKE THREE CAPSULES BY MOUTH THREE TIMES A DAY WITH MEALS 3 Active simethicone (MYLICON) 125 MG chewable tablet Chew 125 mg 3 Active SITagliptin-metF ORMIN (JANUMET) 50-1000 MG per tablet Take 1 tablet by mouth in the morning and 1 tablet in the evening. Active alpha tocopherol (VITAMIN E) 1000 units capsule Take 2,000 Units by mouth 1 (one) time each day Active Multiple Vitamin (Daily-Vitamin) tablet Take 1 tablet by mouth 1 (one) time each day Active cyclobenzaprine (FLEXERIL) 10 MG tablet Take 10 mg by mouth 1 (one) time each day Active Dapagliflozin Propanediol (Farxiga) 10 MG tabletIndication s:Proteinuria, not otherwise specified Take 10 mg by mouth 1 (one) time each day in the morning 90 tablet 3 4 Active propranolol (INDERAL) 10 MG tablet Take 10 mg by mouth in the morning and 10 mg in the evening. 4 Active Active Problems Problem Noted Date Diagnosed Date Proteinuria 10/12/2023 Assessment & Plan (10/12/2023 10:52 PM EDT): Most recent Urine prot/creat ratio Negative as of 04/2023 Rechecking this and will cont to monitor Preserved creatinine 0.7 as of 07/04/23 Not a candidate for NANCY/ARB due to exceptional blood pressures, 116/60 today Not on any antihypertensive medications Is taking SGLT2i, Farxiga 10 mg QD - Rx renewed today Continue to improve diabetes control Target Hgb A1c as close to 6 as possible, did improve from >10 down to 8 recently Hemorrhoid 05/01/2023 05/01/2023 Family History Medical History Relation Comments Stroke Father Relation Status Comments Father Social History Tobacco Use Types Packs/Day Years Used Date Smoking Tobacco: Every Day Cigarettes Smokeless Tobacco: Never Alcohol Use Standard Drinks/Week Comments Yes 0 (1 standard drink = 0.6 oz pur e alcohol) Sex and Gender Information Value Date Recorded Sex Assigned at Not on file Legal Sex Male 12:56 PM EDT Gender Identity Not on file Sexual Orientation Not on file Last Filed Vital Signs Vital Sign Reading Time Taken Comments Blood Pressure 116/60 10/12/2023 1:04 PM EDT Pulse 82 10/12/2023 1:04 PM EDT Temperature - - Respiratory Rate - - Oxygen Saturation - - Inhaled Oxygen Concentration - - Weight 61.7 kg (136 lb) 10/12/2023 1:04 PM EDT Height - - Body Mass Index - - Plan of Treatment Health Maintenance Due Date Last Done Comments Pneumococcal Vaccine: 50+ Ye ars (1 of 2 - PCV) 1979 Colorectal Cancer Screening: Annual FOBT 2009 Colorectal Cancer Screening: Colonoscopy 2009 Colorectal Cancer Screening: Sigmoidoscopy 2009 Diabetes: Ophthalmology Exam 05/01/2023 Diabetes: Pedal Pulse Checked 05/01/2023 Diabetes: Sensory Foot Exam 05/01/2023 Diabetes: Visual Foot Exam 05/01/2023 Diabetes: Hemoglobin A1C 08/03/2023 05/03/2023 Influenza Vaccine (#1) 2025 Hepatitis B Vaccine Aged Out No longe r eligible based on patient's age to complete this topic Procedures Procedure Name Priority Date/Time Associated Diagnosis Comments HEMOGLOBIN A1C Routine 05/03/2023 3:12 PM EDT Persistent proteinuria Type 2 diabetes mellitus with diabetic nephropathy (HCC) from Last 3 Months or Most Recently Relevant to Health Maintenance Results * (ABNORMAL) Hemoglobin A1c (05/03/2023 3:12 PM EDT) Hemoglobin A1C 10.1(H) (4.0-5.6) % [facility] Comment: MONITORING: In known diabetic patients, hemoglobin A1c targets should be discussed with health care provider. DIAGNOSTIC USE: The [place] Diabetes Association (ADA) and the World Health Organization (WHO) recommend the use of HbA1c to diagnose diabetes using a threshold of 6.5%. Patients who have an HbA1c between 5.7% and 6.4% are considered at increased risk for developing diabetes in the future. CAUTION: Falsely low HbA1c results may be observed in patients with hemolytic anemia, homozygous forms of abnormal hemoglobin (e.g. SS, CC, SC), , recent blood loss or hemoglobin F greater than 7%. Fructosamine may be used as an alternate test in these cases. REFERENCE: ADA: Standards of Medical Care in Diabetes 2020, The Journal of Clinical and Applied Research and Education Volume 43, Supplement 1 Testing performed or reported by [facility], a Service of [facility], [address] [place] [address] Rigo Simon MD, Cornice Maker [facility]# [id number] Blood specimen (specimen) Venous blood / Unknown 05/03/2023 3:12 PM EDT 05/03/2023 3:14 PM EDT us Kevin Jones MD LAB BLOOD ORDERABLES Lucy lock Result [facility] from Last 3 Months or Most Recently Relevant to Health Maintenance [place] [address] [place] [address] Care Teams Reversal Print Inspector Relationship Specialty Start Date End Date Yan Burgos DO [address] [place] [id number] PCP - General Internal Medicine 03/30/23
--- OUTSIDE RECORDS SUMMARY | 2025-06-30 10:49 | XMS_ITS | Clinical Summary ---
Author Organization [address] [place] [address] Address [address] [place] [address] Phone Care Team Providers Care Security Operations Engineer Name Role Phone Yan Whitlock DO Primary Care Provider [phone] Allergies Active Allergy Reactions Criticality Noted Date Comments Hydromorphone Rash Medium 03/30/2017 Medications triamcinolone (KENALOG) 0.5 % ointment APPLY TO AFFECTED AREA AROUND THE ANUS TWICE A DAY 60 g 1 07/08/2024 Active loperamide (IMODIUM) 2 mg capsule TAKE ONE CAPSULE BY MOUTH FOUR TIMES A DAY NEEDED FOR DIARRHEA 60 capsule 11 08/23/2024 Active Prevalite 4 gram packet TAKE ONE 4 GRAM PACKET BY MOUTH 3 TIMES A DAY 90 packet 11 08/30/2024 Active pancrelipase, Vlr-Mtnw-Sfbh, (Creon) 12,000-38,000 -60,000 unit capsule Take 3 capsules (36,000 Units total) by mouth 3 (three) times a day with meals. 270 capsule 2 03/13/2025 Active omeprazole (PriLOSEC) [address] capsule Take 1 capsule (20 mg total) by mouth 1 (one) time each day before breakfast. 90 capsule 04/27/2025 Active Encounters Date Type Department Care Team Description 04/25/2025 Telephone Gastroenterology - [place] [address] [place] [phone] Aparna Pollard PA from Last 3 Months Surgical History Surgery Date Site/Laterality Comments COLONOSCOPY 03/23/2010 PROCEDURE: HISTORICAL COLONOSCOPY; COMMENT: polyps COLONOSCOPY 10/14/2014 PROCEDURE: HISTORICAL COLONOSCOPY; COMMENT: polyps COLONOSCOPY 02/24/2021 PROCEDURE: HISTORICAL COLONOSCOPY; COMMENT: negative Medical History Medical History Date Comments Chronic neck and back pain DX:Ch ronic neck and back pain Pancreatitis DX:Pancreatitis Malabsorption syndrome DX:Malabs orption syndrome Depression DX:Depression Anxiety DX:Anxiety Cervical myelopathy ([facility] V24, [facility] V28) DX:Cervical myelopathy (HCC) Lumbar stenosis DX:Lumbar stenos is Colon polyps DX:Colon polyps Hemorrhoids DX:Hemorrhoids Pancreatitis DX:Pancreatitis Change in bowel habits DX:Change in bowel habits Diabetes mellitus type 2, co ntrolled, with complications ([facility] V24, [facility] V28) DX:Diabetes mellitus type 2, controlled, with complications ([facility]) Family History Medical History Relation Name Comments Other: heart disease Mother Relation Name Status Comments Mother Social History Tobacco Use Types Packs/Day Years Used Date Smoking Tobacco: Every Day Cigarettes 0.5 43.9 Started: 1981 Smokeless Tobacco: Never Alcohol Use Standard Drinks/Week Comments Yes 0 (1 standard drink = 0.6 oz pur e alcohol) Sex and Gender Information Value Date Recorded Sex Assigned at Not on file Legal Sex Male 7:00 AM EST Gender Identity Not on file Sexual Orientation Not on file Last Filed Vital Signs Vital Sign Reading Time Taken Comments Blood Pressure 118/66 10/17/2022 1:29 PM EDT Pulse 86 10/17/2022 1:29 PM EDT Temperature - - Respiratory Rate - - Oxygen Saturation - - Inhaled Oxygen Concentration - - Weight 65.9 kg (145 lb 3.2 oz) 10/17/2022 1:29 P M EDT Height 188 cm (6' 2 ) 10/17/2022 1:29 PM EDT Body Mass Index 18.64 10/17/2022 1:29 PM EDT Plan of Treatment Upcoming Encounters Date Type Department Care Team (Late st Contact Info) Description 02/09/2026 8:30 AM EDT Office Visit Gastroenterology - [address] [facility] [address] [facility] [address] [place] [phone] Aparna Pollard PA [address] [facility] [address] [place] [address] Health Maintenance Due Date Last Done Comments Diabetes: Annual GFR (Glomerular Filtration Rate) 1960 Diabetes: Annual Foot Exam 1970 Diabetes: Annual Retina Eye Exam 1970 Pneumococcal Vaccine: 50+ Years (1 of 2 - PCV) 1979 RSV Immunization Adult Patients (1 - Risk 50-74 years 1-dose series) 2010 Zoster Vaccines (1 of 2) 2010 Cholesterol Screening (Lipid Panel) 06/18/2022 HIV Screening 06/18/2022 Hepatitis C Screening 06/18/2022 Social Influencers of Health Screening 06/18/2022 Depression Screening 07/10/2024 COVID-19 Vaccine (1 - 2024-2 6 season) 2025 Influenza Vaccine (#1) 2025 Diabetes: Annual Urine Albumin-Creatinine Ratio (uACR) 04/24/2025 Diabetes: Blood Sugar Contro l Test (HGBA1C) 04/24/2025 05/03/2023 Colorectal Cancer Screening: Colonoscopy 06/15/2025 06/15/2020, 06/15/2020 DTaP,Tdap,and Td Vaccines (2 - Td or Tdap) 04/14/2034 04/14/2024 HIB Vaccines Aged Out No longer eligi ble based on patient's age to complete this topic HPV Vaccines Aged Out No longer eligi ble based on patient's age to complete this topic Hepatitis A Vaccines Aged Out No long er eligible based on patient's age to complete this topic Hepatitis B Vaccines Aged Out No long er eligible based on patient's age to complete this topic IPV Vaccines Aged Out No longer eligi ble based on patient's age to complete this topic MMR Vaccines Aged Out No longer eligi ble based on patient's age to complete this topic Meningococcal ACWY Vaccine Aged Out N o longer eligible based on patient's age to complete this topic Meningococcal B Vaccine Aged Out No l onger eligible based on patient's age to complete this topic RSV Immunization Patients Under 20 months Aged Out No longer eligible b ased on patient's age to complete this topic Varicella Vaccines Aged Out No longer eligible based on patient's age to complete this topic Procedures Procedure Name Priority Date/Time Associated Diagnosis Comments COLONOSCOPY Routine 06/15/2020 10:54 AM EST from Last 3 Months or Most Recently Relevant to Health Maintenance Results * COLONOSCOPY (06/15/2020 10:54 AM EST) Anatomical Region Laterality Modality Endoscopy us Historical Provider GI~PROCEDURE ORDERABLES F inal Result from Last 3 Months or Most Recently Relevant to Health Maintenance Insurance [facility] Care Teams Security Operations Engineer Relationship Specialty Start Date End Date Yan Whitlock DO PCP - General Internal Medicine 02/18/21
== END 2025-06-30 10:52 | disposition home or self-care (01) ==
LOC: HO.HSMS 09:30
PROVIDERS: PCP Internal Medicine; Visit Provider Nurse Practitioner Family
DX: R25.1 Tremor, unspecified (principal); G25.0 Essential tremor; R26.9 Unspecified abnormalities of gait and mobility; R20.2 Paresthesia of skin; M54.2 Cervicalgia; R53.1 Weakness; R42 Dizziness and giddiness
CPT/HCPCS: 99215

== ENCOUNTER → 2025-06-30 09:29 | Outpatient (BNVA) | payer OTHER, SELFPAY | PROVIDERS: PCP Internal Medicine; Visit Provider Nurse Practitioner Family | DX: G25.0 Essential tremor (principal); M54.2 Cervicalgia; G56.02 Carpal tunnel syndrome, left upper limb; G62.9 Polyneuropathy, unspecified; R26.9 Unspecified abnormalities of gait and mobility; R20.2 Paresthesia of skin; R53.1 Weakness; R42 Dizziness and giddiness | CPT/HCPCS: 99212 ==